=== PATIENT | male | born 1950 | race Hispanic/Latino ===

== ENCOUNTER 2018-06-16 10:42 | Emergency (ER) | payer BC, MEDICARE ==
[2018-06-16 10:58] VITALS: BMI 24.4
--- NOTE | 2018-06-16 12:54 | ED PDOC ---
Lower Extremity Pain/Injury Time Seen by Provider: 06/16/18 11:56 Chief Complaint (Nursing): Hip Pain Chief Complaint (Provider): Hip Pain History Per: Patient History/Exam Limitations: no limitations Onset/Duration Of Symptoms: Days, Sudden Onset Current Symptoms Are (Timing): Still Present Additional Complaint(s): 67 year old male with Hx of BPH and right knee arthritis presents to the ER for an evaluation of right hip pain onset for 1 week. Patient states, a week ago, he leaned forward at the sink and felt at sudden onset of pain on his lower back and hip. He took Ibuprofen twice without any relief and continues to have pain with difficulty walking. Reports the pain is minimal at rest. Denies numbness, tingling, incontinence or decreased ROM at the hip. Past Medical History Reviewed: Historical Data, Nursing Documentation, Vital Signs Vital Signs: Last Vital Signs Temp 98.0 F 06/16/18 11:24 Pulse 58 L 06/16/18 11:24 Resp 16 06/16/18 11:24 BP 129/75 06/16/18 11:24 Pulse Ox 100 06/16/18 11:24 - Medical History PMH: Benign Prostatic Hyperplasia Denies: CAD, CVA, HTN, TIA - Surgical History Other surgeries: right shoulder replacement - Family History Family History: States: Unknown Family Hx - Social History Current smoker - smoking cessation education provided: No Alcohol: None Drugs: Denies - Home Medications Home Medications: Ambulatory Orders Medication Instructions Recorded RX: Naproxen 500 mg PO BID PRN 7 Days ect 06/16/18 - Allergies Allergies/Adverse Reactions: Allergies Allergy/AdvReac Type Severity Reaction Status Date / Time No Known Allergies Allergy Verified 06/16/18 11:28 Review of Systems ROS Statement: Except As Marked, All Systems Reviewed And Found Negative Genitourinary Male: Negative for: Dysuria, Frequency, Incontinence Musculoskeletal: Positive for: Back Pain (lower), Other (right hip pain) Neurological: Negative for: Numbness, Other (tingling) Physical Exam - Reviewed Nursing Documentation Reviewed: Yes Vital Signs Reviewed: Yes - Physical Exam Appears: Positive for: Well, Non-toxic, No Acute Distress Head Exam: Positive for: ATRAUMATIC, NORMAL INSPECTION, NORMOCEPHALIC Skin: Positive for: Normal Color, Warm, Dry. Negative for: Rash Neck: Positive for: Normal, Supple Cardiovascular/Chest: Positive for: Regular Rate, Rhythm. Negative for: Murmur Respiratory: Positive for: Normal Breath Sounds. Negative for: Decreased Breath Sounds, Wheezing, Respiratory Distress Back: Positive for: Normal Inspection (normal ROM, flexion and extension of back ) Extremity: Positive for: Normal ROM (flexion, extension and abduction at right hip, knee and foot), Tenderness (sensitive to light touch to bilateral to lower extremities. passive abduction on right arm thats chronic ), Other (right hip present no echymosis, erythema or edema. 5/5 strength to upper extremities ). Negative for: Deformity Neurologic/Psych: Positive for: Alert, Oriented (x3), Gait (steady). Negative for: Motor/Sensory Deficits - Laboratory Results Result Diagrams: 06/16/18 13:05 06/16/18 13:05 - ECG O2 Sat by Pulse Oximetry: 100 (RA) Pulse Ox Interpretation: Normal Medical Decision Making Medical Decision Making: Time: 1230 Initial Plan: CMP Urine Dip CBC w/ Differential Toradol 30mg Hip 1 View w/ Pelvis Right [RAD] Reevaluation Upon reading the x-ray of the right hip there is no evidence of fracture noted. Upon provider evaluation patient is medically stable, and requires no further treatment in the ED at this time. Patient will be discharged home with Naproxen 500mg for pain. Counseling was provided and all questions were answered regarding diagnosis and need for follow up with PMD. There is agreement to discharge plan. Return if symptoms persist or worsen. Scribe Attestation: Documented by Ant Mcqueen, acting as a scribe for Dinorah Stark PA-C Provider Scribe Attestation: All medical record entries made by the Scribe were at my direction and personally dictated by me. I have reviewed the chart and agree that the record accurately reflects my personal performance of the history, physical exam, medical decision making, and the department course for this patient. I have also personally directed, reviewed, and agree with the discharge instructions and disposition. Disposition - Clinical Impression Clinical Impression: Hip pain - Patient ED Disposition Is Patient to be Admitted: No Counseled Patient/Family Regarding: Studies Performed, Diagnosis, Need For Followup, Rx Given - Disposition Referrals: Musa Cross III, MD [Staff Provider] - Mohit Voss MD [Medical Doctor] - Disposition: Routine/Home Disposition Time: 15:15 Condition: STABLE Additional Instructions: F/u with your primary care doctor to evaluate elevated white blood cell count and continued right hip pain. Use Naproxen as needed for pain. Prescriptions: RX: Naproxen 500 mg PO BID PRN 7 Days ect PRN Reason: Pain, Moderate (4-7) Instructions: Hip Pain (DC) Forms: [facility] ([place]) Print Language: [place]ESE
[2018-06-16 13:16] LABS: BASO # 0.1 K/uL (0.0-0.2); BASO % 0.5 % (0.0-2.0); EOS # 0.1 K/uL (0.0-0.7); EOS % 0.9 % (0.0-4.0); LYMPH # 6.5 K/uL (1.0-4.3); LYMPH % 42.9 % (20.0-40.0); MEAN CORPUSCULAR HGB CONC 33.4 g/dL (33.0-37.0); MEAN PLATELET VOLUME 8.8 fl (7.2-11.7); MONO # 1.2 K/uL (0.0-0.8); MONO % 7.9 % (0.0-10.0); NEUT # 7.3 K/uL (1.8-7.0); NEUT % 47.8 % (50.0-75.0); NRBC % 0.1 % (0.0-0.0); RBC 5.7 Mil/uL (4.40-5.90); RED CELL DISTRIBUTION WIDTH 13.6 % (11.5-14.5); WHITE BLOOD COUNT 15.2 K/uL (4.8-10.8)
[2018-06-16 13:39] LABS: ALB/GLOB RATIO 1.4 (1.0-2.1); ALBUMIN 4.9 g/dL (3.5-5.0); ALT/SGPT 34 U/L (21-72); AST/SGOT 30 U/L (17-59); BLOOD UREA NITROGEN 20 mg/dl (9-20); CALCIUM 10.5 mg/dL (8.4-10.2); GFR NON-AFRICAN AMERICAN > 60
[2018-06-16 15:16] VITALS: BP 128/74; PULSE 63; RESP 15; TEMP 98.1
--- NOTE | 2018-06-16 15:21 | RAD ---
PROCEDURE: Right Hip Radiographs. HISTORY: Right hip pain x 1 week COMPARISON: None. FINDINGS: BONES: Normal. No fracture. JOINTS: Normal. SOFT TISSUES: Normal. OTHER FINDINGS: None. IMPRESSION: Normal radiographs of right hip.
[2018-06-17 01:16] VITALS: O2SAT 100
== END 2018-06-16 15:15 | disposition home or self-care (01) ==
LOC: H.ER 10:42
DX: M25.551 Pain in right hip (principal); Z96.611 Presence of right artificial shoulder joint